=== PATIENT | female | born 1945 | race Caucasian/White ===

== ENCOUNTER 2019-08-31 10:42 | Day surgery (SDC) | payer BC ==
[~2019-08-31] VITALS: Ht 175.3 cm; Wt 61.2 kg
[2019-08-31] VITALS (8 sets, daily range): BP systolic 116–135; BP diastolic 62–78
[~2019-08-31 10:42] MED LIST: PROGESTERONE100 MG PO; ceFAZolin sod 1 GM in NS 55 ML IVPB ONE
[2019-08-31] MEDS ORDERED: fentaNYL 100 mcg/2 mL IV ONE (11:20)
[2019-08-31] MEDS ORDERED: LR 1000ml ONE (12:12)
[2019-08-31] MEDS ORDERED: Ketorolac 30mg Inj ONE (12:12)
[2019-08-31] MEDS ORDERED: NS Irrig 1000ml ONE (12:12)
[2019-08-31] MEDS ORDERED: Sterile Water Irrig 1000ml IRRIG ONE (12:12)
[2019-08-31] MEDS ORDERED: Propofol 200mg/20ml IV ONE (12:14)
--- NOTE | 2019-08-31 12:16 | Pre-Procedure Note/Attestation ---
Pre-Procedure Note/Attestation Complete Prior to Procedure Planned Procedure: right Procedure Narrative: correction of hammer toe and bony exostosis right foot 2nd and 4th with arthroplasty , MPJ release and possible k-wire fixation Indications for Procedure Pre-Operative Diagnosis: 2nd and 4th toe hammer toe with mpj contraction and bony exostosis Attestation I attest that I discussed the nature of the procedure; its benefits; risks and complications; and alternatives (and the risks and benefits of such alternatives ), prior to the procedure, with the patient (or the patient's legal corporate sales representative). I attest that, if there was a reasonable possibility of needing a blood transfusion, the patient (or the patient's legal corporate sales representative) was given the [place] [employer] standardized written summary, pursuant to the Ludwig Chad Blood Safety Act ([place] Health and Safety Code # 1645, as amended). I attest that I re-evaluated the patient just prior to the surgery and that there has been no change in the patient's H&P, except as documented below: Mariusz Deluna DPM Aug 31, 2019 12:16
[2019-08-31] MEDS ORDERED: Dexamethasone 4mg/ml vial ONE (12:19)
[2019-08-31] MEDS ORDERED: Lidocaine 1% Plain 30 ml INJ ONE (12:20)
[2019-08-31] MEDS ORDERED: Bupivacaine 0.25% Inj 30ml INJ ONE (12:20)
[2019-08-31] MEDS ORDERED: Bacitracin 50000 Units Vial ONE (12:20)
[2019-08-31] MEDS ORDERED: Bacitracin Oint 15gm Tube TOPIC ONE (12:21)
[2019-08-31] MEDS ORDERED: NS Irrig 1000ml IRRIG ONE ×2 (12:26→13:00)
[2019-08-31] MEDS ORDERED: LR 1000ml 1,000 ML IVLG SCH (12:53)
--- NOTE | 2019-08-31 12:53 | Anethesia Preoperative Eval ---
Anesthesia Pre-op PMH/ROS General Date of Evaluation: Aug 31, 2019 Time of Evaluation: 12:02 Anesthesiologist: Ayo ASA Score: ASA 2 Mallampati Score Class I : Soft palate, uvula, fauces, pillars visible Class II: Soft palate, uvula, fauces visible Class III: Soft palate, base of uvula visible Class IV: Only hard plate visible Mallampati Classification: Class II Surgeon: Mikie Diagnosis: R foot hammertoes Surgical Procedure: R foot hammertoe corection Anesthesia History: none Social History: smoking - h/o Allergies: Coded Allergies: No Known Allergies (Unverified , 08/31/19) Medications: see eMAR Patient NPO?: Yes Past Medical History Cardiovascular: Denies: HTN, CAD, NE, valve dz, arrhythmia, other Pulmonary: Denies: asthma, COPD, SANGITA, other Gastrointestinal/Genitourinary: Reports: GERD - mild; Denies: CRI, ESRD, other Neurologic/Psychiatric: Denies: dementia, CVA, depression/anxiety, TIA, other Endocrine: Reports: hypothyroidism; Denies: DM, steroids, other HEENT: Denies: cataract (L), cataract (R), glaucoma, HOONAH (L), HOONAH (R), other Hematology/Immune: Denies: anemia, DVT, bleeding disorder, other Musculoskeletal/Integumentary: Reports: OA; Denies: RA, DJD, DDD, edema, other PMH Narrative: as above PSxH Narrative: see H&P Anesthesia Pre-op Phys. Exam Physician Exam Last Vital Signs Date Time Temp Pulse Resp B/P (MAP) Pulse Ox O2 Delivery O2 Flow Rate FiO2 08/31/19 12:00 97.8 63 18 131/78 97 Room Air Constitutional: NAD Neurologic: CN 2-12 intact Cardiovascular: RRR, no M/R/G Respiratory: CTA Gastrointestinal: S/NT/ND Airway Exam Mallampati Score: Class II MO: limited Neck: stiff ROM: full Teeth: intact Dentures: no upper, no lower Anesthesia Pre-op A/P Labs see chart Studies Pre-op Studies: EKG - NSR Risk Assessment & Plan Assessment: ASA 2 Plan: MAC with foot block Status Change Before Surgery: No Pre-Antibiotics Drug: Ancef 1gr. Given Within 1 Hr of Incision: Yes Time Given: 12:31 Joel Rollins MD Aug 31, 2019 12:53
[2019-08-31] MEDS ORDERED: fentaNYL 100 mcg/2 mL IV PRN (13:00)
[2019-08-31] MEDS ORDERED: DiphenhydrAMINE 50mg/ml Inj IVP PRN (13:00)
--- NOTE | 2019-08-31 13:43 | Brief Operative Note ---
Immediate Post Operative Note Operative Note Pre-op Diagnosis: right foot 2nd and 4th toe hammer toe with mpj contraction and bony exostosis Procedure: 1. correction of hammer toe with reduction of bony exostosis and partial arthroplasty 2nd right PIPJ , correction of hammer with arthroplasty and MPJ release right 4th Post-op Diagnosis: same as pre up Post-op Diagnosis: same as pre-op Surgeon: mariusz deluna Anesthesiologist: jeannette Anesthesia: MAC Specimen: yes Complications: none Condition: stable Fluids: 0 Estimated Blood Loss: none Drains: none Tourniquet time: 50 Implant(s) used?: No Mariusz Dleuna DPM Aug 31, 2019 13:43
--- NOTE | 2019-08-31 13:48 | Immediate Post-Op Evaluation ---
Immediate Post-Op Evalulation Immediate Post-Op Evalulation Procedure: R foot hummertoe correction x2 Date of Evaluation: Aug 31, 2019 Time of Evaluation: 13:47 IV Fluids: 600 Blood Products: none Estimated Blood Loss: min Urinary Output: none Blood Pressure Systolic: 125 Blood Pressure Diastolic: 68 Pulse Rate: 62 Respiratory Rate: 20 O2 Sat by Pulse Oximetry: 98 Temperature (Fahrenheit): 97.5 Pain Score (1-10): 1 Nausea: No Vomiting: No Complications none Patient Status: awake, patent, none Hydration Status: adequate Joel Rollins MD Aug 31, 2019 13:48
--- NOTE | 2019-08-31 14:43 | 48 Hour Post Anesthesia Eval ---
Post Anesthesia Evaluation Procedure: R foot hummertoe correction x2 Date of Evaluation: Aug 31, 2019 Time of Evaluation: 14:42 Blood Pressure Systolic: 136 0: 74 Pulse Rate: 68 Respiratory Rate: 20 Temperature (Fahrenheit): 97.6 O2 Sat by Pulse Oximetry: 98 Airway: patent Nausea: No Vomiting: No Pain Intensity: 1 Hydration Status: adequate Cardiopulmonary Status: stable Mental Status/LOC: patient returned to baseline Follow-up Care/Observations: n/a Post-Anesthesia Complications: none Follow-up care needed: ready to discharge Joel Rollins MD Aug 31, 2019 14:43
--- NOTE | 2019-08-31 14:58 | Diagnostic Imaging Report ---
Indication: Foot pain Technique: 3 views right foot Comparison: none Findings: There is evidence of prior bunionectomy. There is a healed fracture deformity of the first metatarsal, may indicate prior trauma or prior osteotomy. There are degenerative changes of the first metatarsal phalangeal joint, manifested primarily by degenerative remodeling. There is degenerative change of the second proximal interphalangeal joint, with degenerative remodeling of the proximal phalangeal head. There is chronic appearing periosteal reaction along the shaft of the second metatarsal. There is an old healed fracture deformity of the fifth metatarsal. No acute fractures. No dislocations. Impression: No acute bony trauma Chronic findings as described
--- NOTE | 2019-08-31 15:01 | Diagnostic Imaging Report ---
Indication: Postoperative, status post second and fourth digit hammertoe repairs Technique: 3 views foot Comparison: 3 hours earlier Findings: Improvement anatomic alignment of the second and fourth digits. No other significant change Impression: Postsurgical changes, as described. No unusual features
--- NOTE | 2019-08-31 19:30 | Pre-op HX & Phy Repo 2 SIG ---
DATE OF ADMISSION: 08/31/2019 DATE OF SURGERY: 08/31/2019 HISTORY OF PRESENT ILLNESS: This is a 74-year-old female with painful right foot secondary to the hammertoe on the second and fourth digits over the past few months. The patient stated that the pain has been getting progressively worse over the past few months. The pain is mostly secondary to bony exostosis on the second PIPJ and on the fourth PIPJ joints. The patient has tried numerous conservative measures including padding, offloading, shoe change, but continues to experience daily pain. She reports no recent illnesses. No recurrent nausea, vomiting, chills, or shortness of breath. The patient is scheduled to have surgery today at [facility]. PAST MEDICAL HISTORY: No pertinent findings. PAST SURGICAL HISTORY: bunion hammertoe surgery on the right foot. MEDICATIONS: None. ALLERGIES: No known drug allergies. SOCIAL HISTORY: Denies illicit drugs or smoking. FAMILY HISTORY: No pertinent findings. PHYSICAL EXAMINATION: VITAL SIGNS: Temperature is 98.7 degree, pulse is 77, respiratory rate is 14, and blood pressure is 110/80. The O2 saturation is 98.2% on room temperature. DERMATOLOGICAL: There are no open lesions. Hyperkeratotic lesion noticed on the PIPJ of the fourth and bony prominence noticed on medial dorsal PIPJ of the second. Contraction of the metaphyses joint and PIPJ joint is noticed. VASCULAR: Dorsalis pedis and posterior artery are palpable. No edema. MUSCULOSKELETAL: Full muscle strength. ASSESSMENT AND PLAN: This is a 74-year-old female with a right foot pain. The patient has tried numerous conservative measures, however, she is still experiencing daily pain. Surgery was recommended with extensive management. The risks, benefits, and alternatives were discussed with the patient in detail who understands and wants to proceed with surgical intervention. All the patient's questions have been addressed and answered. The patient is scheduled to have surgery today on 08/31/[address] [facility]. Mariusz Deluna D.P.M. DR: BERNY JOB#: [id number] CC:
--- NOTE | 2019-08-31 19:30 | Operative Note - Dictated ---
DATE OF OPERATION: 08/31/2019 LOCATION: [facility]. SURGEON: Mariusz Deluna D.P.M. ANESTHESIOLOGIST: . PREOPERATIVE DIAGNOSES: 1. Hammertoe with contraction at the MPJ, fourth right. 2. Hammertoe with bony exostosis PIPJ second toe, right. POSTOPERATIVE DIAGNOSES: 1. Hammertoe with contraction at the MPJ, fourth right. 2. Hammertoe with bony exostosis PIPJ second toe, right. OPERATION PERFORMED: 1. Correction of hammertoe with arthroplasty and reduction of bony exostosis, PIPJ joint, right second. 2. Correction of hammertoe with arthroplasty and MPJ release, fourth right. HEMOSTASIS: Pneumatic ankle tourniquet at 250 mmHg. ESTIMATED BLOOD LOSS: Minimal, less than 2 mL. MATERIAL USED: 3-0 Vicryl, 4-0 nylon. COMPLICATIONS: None. INJECTABLE: 15 mL of 0.25% Marcaine and 1% lidocaine in the ratio of 1:1 was injected into the right foot in terms of a Juares block that included the fourth and second metatarsophalangeal joint. Postoperatively, 2 mL of dexamethasone with 3 mL centimeters 0.25% plain Marcaine was given in postoperative area for the pain management to decrease the inflammation. PATHOLOGY: Bone resected from the fourth and second PIPJ joint was sent for pathology for study. DRESSING: The incision was covered with bacitracin ointment, Xeroform, 4 x 4, Kerlix, and Arielle. Postoperative shoe was given to the patient. DESCRIPTION OF PROCEDURE IN DETAIL: The patient was brought into the operating room, was placed on the operating table in supine position. A time-out was performed to verify the patient's name, procedure, site of surgery, and consent was done. Monitored anesthesia care was administered. Under the monitored anesthesia care, pneumatic ankle tourniquet was then placed about the patient's ankle. After 1 g of Ancef was given to the patient, approximately 15 mL of 1:1 mixture of 0.25% Marcaine and 1% lidocaine was given in the surgical area, which included the second and the fourth metatarsophalangeal joint. The right lower extremity was then scrubbed, prepared and draped in the usual aseptic manner. Esmarch bandage was utilized to exsanguinate the right lower extremity and tourniquet was inflated to 250 mmHg. Attention was then directed to the right foot and second PIPJ joint where contraction and bony exostosis was noticed on the medial side. The incision was done on the top dorsum of the PIPJ joint. The incision was deepened through subcutaneous tissue to the level of capsule. Transverse capsulotomy was performed and the head of the proximal phalanx was freed from all its medial lateral ligaments. At this time, it was noted that there was a large bony exostosis in the middle of the joint extending down into the dorsal as well as the surface of the joint. Using a sagittal saw, the exostosis was decreased. The joint was cleaned out. The area was then lavaged with normal saline. The tendon of the extensor was then reapproximated using 3-0 Vicryl. At this time, the skin was subsequently closed with 4-0 nylon. At this time, attention was directed to the fourth toe where the deformity was noticed at the PIPJ as well as in the metatarsophalangeal joint. A double elliptical incision encompassing the IPK and the PIPJ joint was traced. The skin wedge was removed. Further dissection was done to the level of the capsule and a transverse capsulotomy was performed. The head of the proximal phalanx was freed from its plantar, medial, and lateral attachments and using a sagittal saw, 3 mm of the head was osteotomized and passed from the field. At this time, it was noticed that there was further contraction of the MPJ that prevents complete reduction of the hammertoe. At this time, attention was directed to the metatarsophalangeal joint on the fourth with a stab incision inserting a 64 blade. The extensor tendon was osteotomized. The dorsal capsule was then released. The toe was noticed to plantar flex more than it was before the release. Good approximation was done. performed at this time going back to the extensor tendon on the PIPJ joint. It was attached using 3-0 Vicryl. The wound was then cleaned using normal saline. The skin was approximated and closed with 4-0 nylon. Upon closure, an injection of 2 mL of Decadron in combination with 4 mL of Marcaine was given in the area of surgery for postoperative management. The both surgical sites were then dressed using bacitracin ointment, Xeroform, 4 x 4, Arielle, and Coban. Upon completion of the dressing, the ankle tourniquet was deflated and immediate hyperemia was noted to digits 1 through 5 on the right foot. The patient was then transferred from the operating room to the recovery room with all vital signs stable. The patient will be discharged home upon recommendation from anesthesia. There were no complications with the surgery. Mariusz Deluna D.P.M. DR: ELIDA JOB#: [id number] CC:
== END 2019-08-31 15:10 | disposition home or self-care (01) ==
LOC: SUR 10:42
DX: M20.41 Other hammer toe(s) (acquired), right foot (principal); K21.9 Gastro-esophageal reflux disease without esophagitis; M19.90 Unspecified osteoarthritis, unspecified site
CPT/HCPCS: 28285; 73630; 97161; J0690; J1100; J1885; J2001; J2704; J3010; J3490; 94003; 94150